=== PATIENT | female | born 1935 | race Caucasian/White ===

== ENCOUNTER 2016-12-26 15:37 | Emergency (ER) | payer OTHER ==
[~2016-12-26] VITALS: Ht 165.1 cm; Wt 116.6 kg
--- NOTE | 2016-12-26 15:38 | NUR ---
AAOX3, BIB [facility] FROM HOME, SUDDEN SLURRING OF SPEECH AND LEFT SIDED GAZE AT 1500 WHILE TALKING TO HER CAREGIVER. SKIN IS WARM AND NON DIAPHORETIC. RESP IS EVEN AND UNLABORED WITH NAD NOTED. PLACED ON MONITOR. DR WILSON AT BS FOR EVAL.
--- NOTE | 2016-12-26 15:39 | NUR ---
CODE STROKE CALLED
--- NOTE | 2016-12-26 15:40 | NUR ---
CALLED 'S TELESTROKE HOTLINE, SPOKE WITH NIMO, PRESENTED PT, AWAITING CALL BACK FROM
--- NOTE | 2016-12-26 15:44 | NUR ---
PT TO CT
--- NOTE | 2016-12-26 15:44 | NUR ---
ON PHONE WITH
--- NOTE | 2016-12-26 15:58 | NUR ---
PT BACK FROM CT
--- NOTE | 2016-12-26 15:59 | NUR ---
CALLED 'S TELESTROKE HOTLINE TO INFORM THEM PT IS BACK IN ROOM
[2016-12-26] MEDS ORDERED: CT SWABBABLE VALVE TRANS SET 1 EA INFUS.SET MC ONE (16:04)
[2016-12-26] MEDS ORDERED: IOHEXOL-350 100 ML VIAL IV ONE (16:04)
[2016-12-26] MEDS ORDERED: IV NS 0.9% 250 ML IV ONE (16:04)
[2016-12-26] MEDS ORDERED: LIDOCAINE HCL/PF 1% 30 ML SDV ONE (16:04)
[2016-12-26] MEDS ORDERED: GABA-532 PO (16:05)
[2016-12-26] MEDS ORDERED: LEVO125T8 PO (16:05)
[2016-12-26] MEDS ORDERED: HYDR-4076 PO (16:05)
[2016-12-26] MEDS ORDERED: LOSA50TA21 PO (16:05)
[2016-12-26] MEDS ORDERED: FLUO40CA49 PO (16:05)
[2016-12-26] MEDS ORDERED: CARV6.252 PO (16:05)
[2016-12-26] MEDS ORDERED: PRAV20TA4 PO (16:05)
[2016-12-26] MEDS ORDERED: NITR0.4T SL (16:05)
[2016-12-26] MEDS ORDERED: TRAZ-144 PO (16:05)
[2016-12-26 16:07] LABS: BASOPHILS # (AUTO) 0.1 /CMM (0.0-0.2); BASOPHILS % (AUTO) 1.3 % (0.0-2.0); EOSINOPHILS # (AUTO) 0.5 /CMM (0.0-0.7); EOSINOPHILS % (AUTO) 5.9 % (0.0-6.0); HEMATOCRIT 38 % (33-45); HEMOGLOBIN 12.7 g/dL (11.5-14.8); LYMPHOCYTES # (AUTO) 2.2 /CMM (0.8-4.8); LYMPHOCYTES % (AUTO) 25.7 % (20.0-44.0); MEAN CORPUSCULAR HEMOGLOBIN 31 PG (26.0-33.0); MEAN CORPUSCULAR HGB CONC 34 g/dl (31.0-36.0); MEAN CORPUSCULAR VOLUME 91 fL (82-100); MONOCYTES # (AUTO) 0.5 /CMM (0.1-1.30); MONOCYTES % (AUTO) 5.6 % (2.0-12.0); NEUTROPHILS # (AUTO) 5.2 /CMM (1.8-8.9); NEUTROPHILS % (AUTO) 61.5 % (43.0-81.0); PLATELET COUNT (AUTO) 166 /CMM (150-450); RDW COEFFICIENT OF VARIATION 15.2 (11.5-15.0); RED BLOOD CELL COUNT(AUTO) 4.12 MIL/uL (4.0-5.2); WHITE BLOOD COUNT (AUTO) 8.5 K/uL (4.3-11.0)
--- NOTE | 2016-12-26 16:09 | NUR ---
CALLED AT [phone], SAID HE WILL CALL BACK
--- NOTE | 2016-12-26 16:14 | NUR ---
RECEIVED CALL BACK FROM , TRANSFERRED CALL TO
[2016-12-26 16:17] LABS: CALCIUM, SERUM 8.7 mg/dL (8.5-10.1); CARBON DIOXIDE 27 mmol/L (21-32); CHLORIDE 106 mmol/L (98-107); CREATININE 1.2 mg/dL (0.6-1.3); GLUCOSE 113 mg/dL (74-106); POTASSIUM 4.5 mmol/L (3.5-5.1); SODIUM SERUM 139 mmol/L (136-145); UREA NITROGEN, BLOOD 19 mg/dL (7-18)
[2016-12-26 16:25] LABS: INR 0.96 (0.87-1.13); TROPONIN I < 0.017 ng/mL (0.00-0.056)
--- NOTE | 2016-12-26 16:25 | NUR ---
CALLED NURSING SUP. FOR ICU BED
[2016-12-26] MEDS ORDERED: NICARDIPINE IN DEXTROSE,ISO-OS 200 ML IV ONE ×2 (16:30→20:28)
--- NOTE | 2016-12-26 16:35 | NUR ---
CALLED [place] [facility], PRESENTED PT, AWAITING CALL BACK FROM [place]
--- NOTE | 2016-12-26 16:40 | NUR ---
RECEIVED CALL BACK FROM [place] , , TRANSFERRED CALL TO DR. WILSON
--- NOTE | 2016-12-26 17:20 | NUR ---
PROVIDED [facility] FOR COMFORT.
--- NOTE | 2016-12-26 17:47 | NUR ---
PATIENT TRANSPORTED TO CT VIA GURNEY. PATIENT REMAINS IN STABLE CONDITION AT THIS TIME.
[2016-12-26 17:53] LABS: APPEARANCE,URINE Clear (CLEAR); BILIRUBIN,URINE Negative (NEGATIVE); BLOOD, URINE Negative Ery/uL (NEGATIVE); COLOR,URINE Yellow (YELLOW); KETONES,URINE Negative (NEGATIVE); LEUKOCYTE ESTERASE ,URINE Negative (NEGATIVE); NITRITE, URINE Negative (NEGATIVE); PROTEIN,URINE Negative (NEGATIVE); UGLUCOSE Negative (NEGATIVE); UROBILINOGEN,URINE 0.2 EU/dL (0.2)
--- NOTE | 2016-12-26 18:01 | NUR ---
PATIENT IS BACK FROM CT HEAD VIA GURNEY. PATIENT REMAINS IN STABLE CONDITION AT THIS TIME.
--- NOTE | 2016-12-26 18:52 | NUR ---
RECEIVED CALL FROM [place] IS ACCEPTED AT [facility] BY AND DR. KING, ROOM 1113, NUMBER FOR REPORT IS [phone], [facility] SHOULD ARRIVE IN 1 HOUR
--- NOTE | 2016-12-26 18:54 | NUR ---
FAXED CT RESULTS TO [facility] [phone]
--- NOTE | 2016-12-26 19:09 | NUR ---
REPORT GIVEN TO MICHELLE TRUONG FOR ARASELI GOING TO [facility] RM 1113.
--- NOTE | 2016-12-26 19:15 | NUR ---
RECEIVED PATIENT ALERT, RESPONSIVE TO VERBAL AND TACTILE STIMULI, SLURRED SPEECH NOTED. NO S/S OF ACUTE DISTERSS NOTED. NICARDIPINE DRIP INFUSING WELL AT 7.5MG/HR WITH BP AT 151/48. WILL CLOSELY MONITOR. AWAITING FOR AMBULANCE PATIENT CARRIER.
--- NOTE | 2016-12-26 19:39 | NUR ---
[facility] -- [facility] CALLED [facility] IS STILL 2030 BUT THE MD MARIAMA WANTS THE PATIENT TO GO TO ER FIRST IN [place] [phone]
--- NOTE | 2016-12-26 19:40 | NUR ---
Titrated nicardipine drip to 10mcg/hr, BP 135/61, HR 80.
--- NOTE | 2016-12-26 20:09 | NUR ---
RECEIVED CALL FROM [place], PT WILL BE GOING TO ICU ROOM 1113, NOT ER, PER AT [place]
[2016-12-26] MEDS ORDERED: IV SET PRIMARY PUMP SET 1 EA INFUS.SET MC ONE (20:28)
--- NOTE | 2016-12-26 20:30 | NUR ---
Report given to Karis in [facility] rm 111-3 for teagan.
[2016-12-26 21:23] VITALS: BP 141/44
--- NOTE | 2016-12-26 21:44 | NUR ---
Report given to Juvencio Travis RN for teagan, family at bedside. Patient is taken to [facility] ICU via [facility] ambulance. No acute changes noted, seen patient talking to family, breathing even and unlabored.
== END 2016-12-26 21:44 | disposition short-term general hospital (02) ==
LOC: ER 15:40
DX: I63.9 Cerebral infarction, unspecified (principal); I61.9 Nontraumatic intracerebral hemorrhage, unspecified; I10 Essential (primary) hypertension; E11.9 Type 2 diabetes mellitus without complications; Z88.0 Allergy status to penicillin; Z88.6 Allergy status to analgesic agent
CPT/HCPCS: 36415; 70450 ×2; 71010; 80048; 81001; 82962; 84484; 85025; 85730; 87081; 93005; 96365; 96366; 99291; A4606; J3490; J7050; Q9967; 81000-TC; Z7610